=== PATIENT | female | born 1990 | race Caucasian/White ===

== ENCOUNTER → 2023-07-15 16:01 | Outpatient (BNVA) | payer MEDICAID, SELFPAY | PROVIDERS: Family Provider Family Medicine; Visit Provider Nurse Practitioner Family | DX: M79.672 Pain in left foot (principal) | CPT/HCPCS: 73630 ==

== ENCOUNTER 2025-07-12 21:48 | Emergency (ER) | payer SELFPAY ==
[2025-07-12 21:53] VITALS: BP 131/81; PULSE 86; RESP 16; O2SAT 100; BMI 26.5
--- NOTE | 2025-07-12 22:10 | W.ED.SKABFB ---
HPI - Skin/Abscess/Foreign Bdy General: Chief complaint: Skin/Abscess/Foreign Body Stated complaint: insect bite right leg hot swollen hard draining Time Seen by Provider: 07/12/25 22:10 Source: patient Mode of arrival: ambulatory Limitations: no limitations History of Present Illness: Patient is a 35-year-old female who presents to ED today with concerns of a possible brown recluse bite to her right lower leg that she has had over the past 2 days. Patient states she has a wood stove and has been carrying and wood from outside. She states that is also a basement house that has seen multiple brown recluses previously. There was no visualized bite. She is reporting an area right lower lateral leg that is erythematous and indurated. She states her dog stratched it recently and she noticed some purulent material come out. MD complaint: insect bite/sting and abscess/boil Onset (ago): day(s) Tetanus up to date: yes Location: RLE Severity: mild Quality: burning Pain Consistency: constant Relieving factors: none Exacerbating factors: none Associated symptoms: Reports no associated symptoms; Deny chills, fever(s), nausea or vomiting Treatments prior to arrival: none Related Data Previous Rx's ?Medication ?Instructions ?Recorded promethazine-DM 6.25 mg-15 mg/5 mL 5 - 10 ml PO Q6H PRN cough #240 mL 11/12/23 oral syrup sulfamethoxazole 800 1 tab PO BID 7 days #14 tabs 07/12/25 mg-trimethoprim 160 mg tablet (Bactrim DS) Allergies Allergy/AdvReac Type Severity Reaction Status Date / Time No Known Allergies Allergy Unverified 11/11/23 13:59 Review of Systems Const: Denies: fever(s), chills, body aches, fatigue or malaise Card: Denies: chest pain Resp: Denies: dyspnea GI: Denies: abdominal pain, nausea, vomiting or diarrhea Musc: Denies: neck pain, back pain, joint pain, joint swelling or joint redness Skin/Breast: Reports: new lesions (R lateral lower leg) Neuro: Denies: headache(s), numbness in extremities, weakness in extremities, sensory changes or difficulty walking [facility] ED PFSH: Social History Smoking and tobacco/nicotine status: former use of tobacco/nicotine Second hand smoke exposure: No Alcohol intake: never Substance/Drug Use: never Adopted: No Caregiver/support person: No Lives independently: Yes Household members: family Housing: House Marital status: Number of children: 1 Highest education level completed: High School Graduate service: No Current occupational status: employed Physical Exam Const: COMMON NORMALS: no acute distress, average body habitus, no limitations, healthy appearing, alert and well nourished GENERAL APPEARANCE: cooperative Extremity: COMMON NORMALS: full ROM, capillary refill normal, no joint enlargement, no clubbing, cyanosis or edema, no calf tenderness and no pedal edema GENERAL: Yes normal exam except as noted RIGHT LOWER EXTREMITY: Yes lower leg EXTREMITY IMAGE (FRONT):  1. 1.5 in area of induration and mild erythema with central punctate lesion; no fluctuance or drainage; no central dusky appearance or hemorrhage; no central pallor Neuro: COMMON NORMALS: moves all extremities, no focal motor deficits, no sensory deficits noted and gait normal SENSORIUM/ORIENTATION: Yes alert Skin: LESIONS: lesion noted (R LE) Course Vital Signs: Vital signs: Vital Signs Pulse Rate 86 07/12/25 21:53 Respiratory Rate 16 07/12/25 21:53 Blood Pressure 131/81 07/12/25 21:53 Pulse Oximetry 100 07/12/25 21:53 MDM - Skin/Abscess/Foreign Bdy Medicial Decision Making DDx includes brown recluse bite, other spider/insect bite, early staph infection, among others. Vitals stable. No systemic symptoms. Discussed how most spider/insect bites (even brown recluse) bites heal without intervention and that antibiotics are usually not indicated unless to prevent or treat secondary bacterial infection. I think it is reasonable to try a watch and wait approch for worsening symptoms. She will be provided antibiotic script to fill is she feels lesion is worsening-otherwise plan will be for conservative managment. Return to ED precautions discussed. Differential Diagnosis Likely abscess of skin or subcutaneous tissue, cellulitis, insect bites, impetigo and contact dermatitis Medical Records I reviewed the patient's medical records. No radiology studies performed this visit Discharge Plan Discharge Patient Disposition: Home Clinical Impression: Skin lesion of right leg Condition: Stable Prescriptions: New sulfamethoxazole-trimethoprim [Bactrim DS] 800-160 mg tablet 1 tab PO BID 7 Days Qty: 14 0RF No Action promethazine-DM 6.25-15 mg/5 mL syrup 5 - 10 ml PO Q6H PRN (Reason: cough) Qty: 240 0RF Discharge Orders: Discharge ED (Routine); Ordered 07/12/25 Ordered By: Nano Burns Patient Instructions: Patient Portal & [facility] Instructions Activity Restrictions/Additional Instructions: We discussed how lesion could be consistent with a spider or insect bite. Other differentials would be a staph infection. We discussed how most insect/spider bites are self-limited but that they can become secondarily infected by picking or scratching at them. I think it is reasonable at this time to monitor your lesion closely. If lesion does not worsen and slowly improves on its own, you do not necessarily need to fill prescription antibiotics. If you feel like lesion is enlarging or redness is worsening or if there is increased pain or worsening drainage, you may fill and start antibiotics. You may return to the emergency department at any time for any further concerns you may have. Print Language: Thai Coding Level of Care Code ED Clerical Adjuster for Neil Nagel
== END 2025-07-12 22:38 | disposition home or self-care (01) ==
PROVIDERS: Emergency Provider Physician Assistant
DX: L98.9 Disorder of the skin and subcutaneous tissue, unspecified (principal)
CPT/HCPCS: 99283